=== PATIENT | female | born 1965 | race Caucasian/White ===

== ENCOUNTER 2017-10-06 11:09 | Outpatient (CLI) | payer OTHER ==
[2013-05-17 12:31] VITALS: BP 138/78
[2017-10-06 12:17] LABS: eGFR (African) > 60; eGFR (Non-African) > 60
== END 2017-10-06 11:10 ==
LOC: RT 11:09
PROVIDERS: ATTEND Family Medicine
DX: R00.2 Palpitations (principal); E11.9 Type 2 diabetes mellitus without complications
CPT/HCPCS: 36415; 80053; 83036; 84443